=== PATIENT | male | born 1980 | race Caucasian/White ===

== ENCOUNTER 2021-12-17 10:50 | Observation (INO) | payer SELFPAY ==
[2021-12-17] MEDS ORDERED: PIPERACIL/TAZO 3.375 GM VIAL IV ONE ×2 (11:43→18:22)
[2021-12-17] MEDS ORDERED: MORPHINE 4 MG/ML SYR ONE ×2 (11:43→14:03)
[2021-12-17] MEDS ORDERED: ONDANSETRON 4 MG/2 ML VIAL ONE ×2 (11:43→14:03)
[2021-12-17] MEDS ORDERED: NA CHLORIDE 0.9% 100 ML ONE ×2 (11:44→18:21)
[2021-12-17] MEDS ORDERED: NA CHLORIDE 0.9% 1,000 ML ONE ×2 (11:44→18:21)
--- NOTE | 2021-12-17 11:48 | RAD REPORT ---
EXAM DESCRIPTION: RAD - Chest Single View - 12/17/2021 11:43 am CLINICAL HISTORY: ABDOMINAL DISTENTION COMPARISON: None TECHNIQUE: AP portable chest image was obtained 12/17/2021 11:43 am . FINDINGS: Lungs are clear. Heart and vasculature are normal. No measurable pleural effusion and no p neumothorax. No acute bony abnormality seen. No acute aortic findings suspected. IMPRESSION: No acute cardiopulmonary process.
[2021-12-17 12:09] LABS: Absolute Lymphocytes (CBC) 1.7 K/uL (0.7-4.9); Hematocrit 45.1 % (39.6-49.0); Lymphocytes % 25.4 % (15.3-44.8); MCV 96.9 fL (80-100); MPV 6.8 fL (7.6-11.3); RBC Red Blood Cell Count 4.65 M/uL (4.33-5.43)
[2021-12-17 12:21] LABS: Urine Blood Negative (Negative); Urine Glucose Trace (Negative); Urine Protein Trace (Negative)
[2021-12-17 12:31] LABS: Albumin 3.6 g/dL (3.4-5.0); Bilirubin Direct 0.2 mg/dL (0-0.2); Bilirubin Total 0.8 mg/dL (0.2-1.0); Magnesium 2.1 mg/dL (1.8-2.4); Potassium 4.1 mmol/L (3.5-5.1); Protein, Total 7.8 g/dL (6.4-8.2); Troponin High Sensitivity 4.4 pg/mL (<58.9)
--- NOTE | 2021-12-17 13:47 | RAD REPORT ---
EXAM DESCRIPTION: CT - Abdomen Pelvis W Contrast - 12/17/2021 1:28 pm CLINICAL HISTORY: Abdominal pain COMPARISON: none. TECHNIQUE: Computed axial tomography of the abdomen pelvis was obtained. 100 cc Isovue-300 was admin istered intravenously. Oral contrast was not requested which limits evaluation of bowel and appendix All CT scans are performed using dose optimization technique as appropriate and may include automated exposure control or mA/KV adjustment according to patient size. FINDINGS: Fatty liver Spleen, pancreas, adrenals and right kidney are unremarkable. Left renal calculi. No hydronephrosis. There is no evidence of diverticulitis. Normal appendix. An umbilical hernia contains fat. The neck measures 12 millimeters. Marked stranding within the herni ated fat. This may indicate strangulation. IMPRESSION: Umbilical hernia which may be strangulated
--- NOTE | 2021-12-17 14:01 | EDPHYS ---
Physician Documentation [facility] Name: Ike French Age: 41 yrs Sex: Male : 1980 Arrival Date: 12/17/2021 Time: 10:55 Bed 16 Private MD: ED Physician Chandler Oneill HPI: 12/17 11:28 This 41 yrs old Male presents to ER via Ambulatory with complaints of adrienne Referred by PCP for possible umbilical hernia and upper GI obstruction symptoms. 11:28 The patient presents with abdominal pain in the periumbilical area. abdominal adrienne distention in the upper abdomen, in the lower abdomen. Onset: The symptoms/episode began/occurred 3 day(s) ago. The symptoms do not radiate. Associated signs and symptoms: none. The symptoms are described as burning, steady. Modifying factors: The symptoms are alleviated by nothing, remaining still, the symptoms are aggravated by movement, pressure, touching the area. Severity of pain: At its worst the pain was moderate this morning, in the emergency department the pain is unchanged despite home interventions. The patient has not experienced similar symptoms in the past. Historical: - Allergies: 11:11 No Known Allergies; iw - Home Meds: 11:11 lisinopril Oral [Active]; iw - PMHx: 11:11 Hypertensive disorder; iw - Immunization history:: Adult Immunizations unknown. - Social history:: Smoking status: . - Family history:: not pertinent. ROS: 11:28 Constitutional: Negative for fever, chills, and weight loss, Eyes: Negative for injury, adrienne pain, redness, and discharge, ENT: Negative for injury, pain, and discharge, Neck: Negative for injury, pain, and swelling, Cardiovascular: Negative for chest pain, palpitations, and edema, Respiratory: Negative for shortness of breath, cough, wheezing, and pleuritic chest pain, Back: Negative for injury and pain, : Negative for injury, bleeding, discharge, and swelling, MS/Extremity: Negative for injury and deformity, Skin: Negative for injury, rash, and discoloration, Neuro: Negative for headache, weakness, numbness, tingling, and seizure, Psych: Negative for depression, anxiety, suicide ideation, homicidal ideation, and hallucinations, Allergy/Immunology: Negative for hives, rash, and allergies, Endocrine: Negative for neck swelling, polydipsia, polyuria, polyphagia, and marked weight changes, Hematologic/Lymphatic: Negative for swollen nodes, abnormal bleeding, and unusual bruising. 11:28 Abdomen/GI: Positive for abdominal pain, of the umbilical area. Exam: 11:28 Constitutional: This is a well developed, well nourished patient who is awake, alert, adrienne and in no acute distress. Head/Face: Normocephalic, atraumatic. Eyes: Pupils equal round and reactive to light, extra-ocular motions intact. Lids and lashes normal. Conjunctiva and sclera are non-icteric and not injected. Cornea within normal limits. Periorbital areas with no swelling, redness, or edema. ENT: Nares patent. No nasal discharge, no septal abnormalities noted. Tympanic membranes are normal and external auditory canals are clear. Oropharynx with no redness, swelling, or masses, exudates, or evidence of obstruction, uvula midline. Mucous membranes moist. Neck: Trachea midline, no thyromegaly or masses palpated, and no cervical lymphadenopathy. Supple, full range of motion without nuchal rigidity, or vertebral point tenderness. No Meningismus. Chest/axilla: Normal chest wall appearance and motion. Nontender with no deformity. No lesions are appreciated. Cardiovascular: Regular rate and rhythm with a normal S1 and S2. No gallops, murmurs, or rubs. Normal PMI, no JVD. No pulse deficits. Respiratory: Lungs have equal breath sounds bilaterally, clear to auscultation and percussion. No rales, rhonchi or wheezes noted. No increased work of breathing, no retractions or nasal flaring. Back: No spinal tenderness. No costovertebral tenderness. Full range of motion. Skin: Warm, dry with normal turgor. Normal color with no rashes, no lesions, and no evidence of cellulitis. MS/ Extremity: Pulses equal, no cyanosis. Neurovascular intact. Full, normal range of motion. Neuro: Awake and alert, GCS 15, oriented to person, place, time, and situation. Cranial nerves II-XII grossly intact. Motor strength 5/5 in all extremities. Sensory grossly intact. Cerebellar exam normal. Normal gait. Psych: Awake, alert, with orientation to person, place and time. Behavior, mood, and affect are within normal limits. 11:28 Abdomen/GI: Inspection: abdomen appears normal, Bowel sounds: normal, Palpation: moderate abdominal tenderness, in the umbilical area, Liver: no appreciated palpable abnormalities, Hernia: not appreciated. 11:47 ECG was reviewed by the Attending Physician. [facility] Vital Signs: 11:08 BP 132 / 93; Pulse 93; Resp 16; Temp 97.4; Pulse Ox 96% on R/A; iw 12:25 BP 127 / 108; Pulse 87; Resp 15; Pulse Ox 97% ; jl7 13:30 BP 130 / 94; Pulse 79; Resp 15; Pulse Ox 99% ; jl7 14:45 BP 130 / 90; Pulse 75; Resp 15; Pulse Ox 98% ; jl7 15:15 BP 121 / 96; Pulse 78; Resp 16; Pulse Ox 96% ; jl7 16:45 BP 114 / 77; Pulse 79; Resp 15; Pulse Ox 98% ; jl7 18:00 BP 125 / 89; Pulse 78; Resp 15; Pulse Ox 99% ; jl7 18:30 BP 132 / 96; Pulse 74; Resp 15; Pulse Ox 100% ; jl7 MDM: 11:17 Patient medically screened. [facility] 11:31 Differential diagnosis: bowel obstruction, non-specific abd pain, ventral hernia, adrienne incarcerated. Data reviewed: vital signs, nurses notes, lab test result(s), EKG, radiologic studies, CT scan, plain films. 12/17 11:27 Order name: Basic Metabolic Panel; Complete Time: 13:54 [facility] 12/17 11:27 Order name: CBC with Diff; Complete Time: 13:54 [facility] 12/17 11:27 Order name: LFT's; Complete Time: 13:54 [facility] 12/17 11:27 Order name: Magnesium; Complete Time: 13:54 [facility] 12/17 11:27 Order name: NT PRO-BNP; Complete Time: 13:54 [facility] 12/17 11:27 Order name: PT-INR; Complete Time: 13:54 [facility] 12/17 11:27 Order name: Troponin HS; Complete Time: 13:54 [facility] 12/17 11:27 Order name: Lipase; Complete Time: 13:54 [facility] 12/17 12:21 Order name: Urine Dipstick-Ancillary; Complete Time: 13:54 EDMS 12/17 14:34 Order name: CBC with Automated Diff EDMS 12/17 14:34 Order name: CBC with Automated Diff EDMS 12/17 14:34 Order name: Comprehensive Metabolic Panel [facility] 12/17 14:34 Order name: Comprehensive Metabolic Panel [facility] 12/17 14:34 Order name: Protime (+INR) [facility] 12/17 11:27 Order name: XRAY Chest (1 view); Complete Time: 13:54 [facility] 12/17 11:27 Order name: EKG; Complete Time: 11:27 [facility] 12/17 11:27 Order name: Cardiac monitoring; Complete Time: 11:40 [facility] 12/17 11:27 Order name: CT Abd/Pelvis - PO and IV Contrast; Complete Time: 13:54 [facility] 12/17 14:34 Order name: CONS Physician Consult [facility] 12/17 14:34 Order name: NPO [facility] 12/17 14:34 Order name: Protime (+INR) [facility] 12/17 14:34 Order name: PTT, Activated Partial Thromb [facility] 12/17 14:34 Order name: PTT, Activated Partial Thromb [facility] 12/17 14:54 Order name: SARS-COV-2 RT PCR (Document "Date of Onset" if Symptomatic) 12/17 17:11 Order name: SARS-COV-2 RT PCR [facility] 12/17 11:27 Order name: EKG - Nurse/Tech; Complete Time: 11:40 [facility] 12/17 11:27 Order name: IV Saline Lock; Complete Time: 12:21 [facility] 12/17 11:27 Order name: Labs collected and sent; Complete Time: 12:21 [facility] 12/17 11:27 Order name: O2 Per Protocol; Complete Time: 11:40 [facility] 12/17 11:27 Order name: O2 Sat Monitoring; Complete Time: 11:40 [facility] 12/17 11:27 Order name: Urine Dipstick-Ancillary (obtain specimen); Complete Time: 12:21 [facility] EC:47 Rate is 88 beats/min. Rhythm is regular. QRS [place] is Normal. [place] interval is normal. QRS adrienne interval is normal. QT interval is normal. No Q waves. T waves are Normal. No ST changes noted. Clinical impression: NSR w/ Non-specific ST/T Changes and No evidence of ischemia. Interpreted by me. Reviewed by me. Administered Medications: 12:10 Drug: NS 0.9% 500 ml Route: IV; Rate: bolus; Site: left antecubital; jl7 13:00 Follow up: Response: No adverse reaction; IV Status: Completed infusion; IV Intake: jl7 500ml 12:10 Drug: Zofran (Ondansetron) 4 mg Route: IVP; Site: left antecubital; jl7 13:00 Follow up: Response: No adverse reaction jl7 12:12 Drug: morphine 4 mg Route: IVP; Infused Over: 4 mins; Site: left antecubital; jl7 12:30 Follow up: Response: No adverse reaction; Pain is decreased jl7 12:16 Drug: Zosyn (piperacillin-tazobactam) 3.375 grams Route: IVPB; Infused Over: 60 mins; jl7 Site: left antecubital; 13:15 Follow up: Response: No adverse reaction; IV Status: Completed infusion jl7 12:30 Drug: NS 0.9% 1000 ml Route: IV; Rate: 125 ml/hr; Site: left antecubital; jl7 19:00 Follow up: Response: No adverse reaction; IV Status: Infusion continued upon admission jl7 Disposition Summary: 12/17/21 14:00 Hospitalization Ordered Hospitalization Status: Inpatient Admission adrienne Provider: Chantelle Lu cha Condition: Stable adrienne Problem: new adrienne Symptoms: have improved adrienne Bed/Room Type: Standard adrienne Location: Telemetry/MedSurg (Inpatient)(12/17/21 18:36) Room Assignment: [facility](12/17/21 18:36) Diagnosis - Periumbilical pain adrienne - Unspecified abdominal hernia with obstruction, without gangrene - umbilical fat adrienne - Essential (primary) hypertension adrienne Forms: - Medication Reconciliation Form adrienne - SBAR form adrienne Signatures: Dispatcher [employer] Vickie Mason RN RN dw Anderson, Corey, MD MD cha Williams, Irene RN Jaylene Ames RN RN jl7 Hermelinda Bliss Corrections: (The following items were deleted from the chart) 15:44 14:00 Telemetry/MedSurg (Inpatient) adrienne eb 15:44 14:00 adrienne eb 18:36 15:44 [facility] ER HOLD eb dw 18:36 15:44 ERHOLD- eb dw
--- NOTE | 2021-12-17 14:01 | ER ---
Nurse's Notes [facility] Name: Ike French Age: 41 yrs Sex: Male : 1980 Arrival Date: 12/17/2021 Time: 10:55 Bed 16 Private MD: Diagnosis: Periumbilical pain;Unspecified abdominal hernia with obstruction, without gangrene-umbilical fat;Essential (primary) hypertension Presentation: 12/17 11:08 Chief complaint: Patient states: large bulge under belly button about 3 days ago, was iw seen at PCP yesterday and told to come to ER , went to [facility] last night for 6 hours and ended up leaving due to wait time, pt has 40 pound weight loss over past 2 months, has abd pain nd swelling. Coronavirus screen: At this time, the client does not indicate any symptoms associated with coronavirus-19. Ebola Screen: Patient negative for fever greater than or equal to 101.5 degrees Fahrenheit, and additional compatible Ebola Virus Disease symptoms Patient denies exposure to infectious person. Patient denies travel to an Ebola-affected area in the 21 days before illness onset. No symptoms or risks identified at this time. Initial Sepsis Screen: Does the patient meet any 2 criteria? No. Patient's initial sepsis screen is negative. Does the patient have a suspected source of infection? No. Patient's initial sepsis screen is negative. Risk Assessment: Do you want to hurt yourself or someone else? Patient reports no desire to harm self or others. Onset of symptoms was October 2021. 11:08 Method Of Arrival: Ambulatory iw 11:08 Acuity: MARIELA 3 iw Historical: - Allergies: 11:11 No Known Allergies; iw - Home Meds: 11:11 lisinopril Oral [Active]; iw - PMHx: 11:11 Hypertensive disorder; iw - Immunization history:: Adult Immunizations unknown. - Social history:: Smoking status: . - Family history:: not pertinent. Screenin:25 Abuse screen: Denies threats or abuse. Denies injuries from another. Nutritional jl7 screening: No deficits noted. Tuberculosis screening: No symptoms or risk factors identified. Fall Risk IV access (20 points). Total Peguero Fall Scale indicates No Risk (0-24 pts). Assessment: 11:30 General: Appears in no apparent distress. uncomfortable, Behavior is calm, cooperative, jl7 appropriate for age. Pain: Complains of pain in abdomen Pain currently is 4 out of 10 on a pain scale. Pain began 4 day ago. Neuro: Level of Consciousness is awake, alert, obeys commands, Oriented to person, place, time, situation. Cardiovascular: Patient's skin is warm and dry. Respiratory: Airway is patent Respiratory effort is even, unlabored, Respiratory pattern is regular, symmetrical. GI: Abdomen is round distended, Abdomen is tender to palpation. Derm: Skin is pink, warm \T\ dry. 12:30 Reassessment: Patient appears in no apparent distress at this time. No changes from jl7 previously documented assessment. Patient and/or family updated on plan of care and expected duration. Pain level reassessed. Patient is alert, oriented x 3, equal unlabored respirations, skin warm/dry/pink. 13:30 Reassessment: Patient appears in no apparent distress at this time. No changes from jl7 previously documented assessment. Patient and/or family updated on plan of care and expected duration. Pain level reassessed. Patient is alert, oriented x 3, equal unlabored respirations, skin warm/dry/pink. 14:30 Reassessment: Patient appears in no apparent distress at this time. No changes from jl7 previously documented assessment. Patient and/or family updated on plan of care and expected duration. Pain level reassessed. Patient is alert, oriented x 3, equal unlabored respirations, skin warm/dry/pink. 15:30 Reassessment: Patient appears in no apparent distress at this time. No changes from jl7 previously documented assessment. Patient and/or family updated on plan of care and expected duration. Pain level reassessed. Patient is alert, oriented x 3, equal unlabored respirations, skin warm/dry/pink. 16:30 Reassessment: Patient appears in no apparent distress at this time. No changes from jl7 previously documented assessment. Patient and/or family updated on plan of care and expected duration. Pain level reassessed. Patient is alert, oriented x 3, equal unlabored respirations, skin warm/dry/pink. 17:30 Reassessment: Patient appears in no apparent distress at this time. No changes from jl7 previously documented assessment. Patient and/or family updated on plan of care and expected duration. Pain level reassessed. Patient is alert, oriented x 3, equal unlabored respirations, skin warm/dry/pink. 18:00 Reassessment: Pt reports increased pain, medicated pt per orders in [facility], 2 mg jl7 Morphine IVP. Vital Signs: 11:08 BP 132 / 93; Pulse 93; Resp 16; Temp 97.4; Pulse Ox 96% on R/A; iw 12:25 BP 127 / 108; Pulse 87; Resp 15; Pulse Ox 97% ; jl7 13:30 BP 130 / 94; Pulse 79; Resp 15; Pulse Ox 99% ; jl7 14:45 BP 130 / 90; Pulse 75; Resp 15; Pulse Ox 98% ; jl7 15:15 BP 121 / 96; Pulse 78; Resp 16; Pulse Ox 96% ; jl7 16:45 BP 114 / 77; Pulse 79; Resp 15; Pulse Ox 98% ; jl7 18:00 BP 125 / 89; Pulse 78; Resp 15; Pulse Ox 99% ; jl7 18:30 BP 132 / 96; Pulse 74; Resp 15; Pulse Ox 100% ; jl7 ED Course: 10:55 Patient arrived in ED. jj6 11:11 Triage completed. iw 11:12 Arm band placed on. iw 11:14 Jaylene Murray, RADHA is Primary Nurse. jl7 11:17 Chandler Oniell MD is Attending Physician. adrienne 11:44 XRAY Chest (1 view) In Process Unspecified. EDMS 12:25 Patient has correct armband on for positive identification. Bed in low position. Call jl7 light in reach. Side rails up X 1. Pulse ox on. NIBP on. 12:25 Initial lab(s) drawn, by ED staff, sent to lab. Urine collected: clean catch specimen, jl7 clear. Inserted saline lock: in left antecubital area, using aseptic technique. Blood collected. 13:30 CT Abd/Pelvis - PO and IV Contrast In Process Unspecified. EDMS 13:56 Chantelle Lu MD is Hospitalizing Provider. adrienne 18:50 No provider procedures requiring assistance completed. Patient admitted, IV remains in jl7 place. intact, No redness/swelling at site. Administered Medications: 12:10 Drug: NS 0.9% 500 ml Route: IV; Rate: bolus; Site: left antecubital; jl7 13:00 Follow up: Response: No adverse reaction; IV Status: Completed infusion; IV Intake: jl7 500ml 12:10 Drug: Zofran (Ondansetron) 4 mg Route: IVP; Site: left antecubital; jl7 13:00 Follow up: Response: No adverse reaction jl7 12:12 Drug: morphine 4 mg Route: IVP; Infused Over: 4 mins; Site: left antecubital; jl7 12:30 Follow up: Response: No adverse reaction; Pain is decreased jl7 12:16 Drug: Zosyn (piperacillin-tazobactam) 3.375 grams Route: IVPB; Infused Over: 60 mins; jl7 Site: left antecubital; 13:15 Follow up: Response: No adverse reaction; IV Status: Completed infusion jl7 12:30 Drug: NS 0.9% 1000 ml Route: IV; Rate: 125 ml/hr; Site: left antecubital; jl7 19:00 Follow up: Response: No adverse reaction; IV Status: Infusion continued upon admission jl7 Medication: 12:25 VIS not applicable for this client. jl7 Intake: 13:00 IV: 500ml; Total: 500ml. jl7 Outcome: 14:00 Decision to Hospitalize by Provider. adrienne 21:45 Patient left the ED. kd3 Signatures: Dispatcher [employer] EDChandler Paiz MD MD cha Williams, Irene, RN RN iw Leal, Jahala, RN RN jl7 Jeffries, Jennifer jj6 Doucette, Kyli, RN RN kd3
[2021-12-17] MEDS ORDERED: ACETAMINOPHEN 500 MG TAB PO PRN (14:31)
[2021-12-17] MEDS ORDERED: ONDANSETRON 4 MG/2 ML VIAL IV PRN (14:31)
--- NOTE | 2021-12-17 14:31 | P.HP ---
Certification for Inpatient Patient admitted to: Observation With expected LOS: <2 Midnights Patient will require the following post-hospital care: None Practitioner: I am a practitioner with admitting privileges, knowledge of patient current condition, hospital course, and medical plan of care. Services: Services provided to patient in accordance with Admission requirements found in Title 42 Section 412.3 of the Code of Federal Regulations Patient History Date of Service: 12/17/21 Reason for admission: Abdominal pain History of Present Illness: Patient is a 41-year-old gentleman who came to the hospital with abdominal pain. He noticed he had umbilical hernia that was erythematous. He came to the emergency room and it was very tender. They were not able to reduce it. Patient was seen by general surgery. Patient be taken to the operating room in the morning. Allergies No Known Allergies Allergy (Unverified 12/17/21 17:23) Home Medications: Lisinopril [Zestril] 40 mg PO DAILY 12/17/21 - Past Medical/Surgical History -: Hypertension Past Surgical History: Patient denies surgical history - Family History Father Family History: Reviewed- Non-Contributory - Social History Smoking Status: Former smoker Alcohol use: No CD- Drugs: No Review of Systems 10-point ROS is otherwise unremarkable Physical Examination - Vital Signs Temperature: 99 F Blood Pressure: 120/80 Pulse: 88 Respirations: 18 Pulse Ox (%): 96 - Physical Exam General: Alert, In no apparent distress, Oriented x3 HEENT: Atraumatic, PERRLA, Mucous membr. moist/pink, EOMI, Sclerae nonicteric Neck: Supple, 2+ carotid pulse no bruit, No LAD, Without JVD or thyroid abnormality Respiratory: Clear to auscultation bilaterally, Normal air movement Cardiovascular: Regular rate/rhythm, Normal S1 S2, No murmurs Gastrointestinal: Absent bowel sounds, Tenderness, Rebound, Guarding Musculoskeletal: No clubbing, No swelling, No tenderness Integumentary: No rashes Neurological: Normal gait, Normal speech, Normal strength at 5/5 x4 extr, Normal tone, Sensation intact, Cranial nerves 3-12 intact, Normal affect Lymphatics: No axilla or inguinal lymphadenopathy - Studies Laboratory Data (last 24 hrs) 12/17/21 11:55: PT 11.0, INR 1.00 12/17/21 11:55: WBC 6.9, Hgb 15.9, Hct 45.1, Plt Count 185 12/17/21 11:55: Sodium 139, Potassium 4.1, BUN 20 H, Creatinine 1.42 H, Glucose 118 H, Magnesium 2.1, Total Bilirubin 0.8, AST 85 H, ALT 164 H, Alkaline Phosphatase 118 H, Lipase 187 Assessment & Plan - Problems (Diagnosis) (1) Strangulated umbilical hernia Current Visit: Yes Status: Acute (2) Hypertension Current Visit: Yes Status: Acute - Plan PLAN: 1. IV fluids 2. Antibiotics 3. Pain control 4. Surgery consultation 5. Monitor blood pressure closely 6. GI DVT prophylaxis Discharge Plan: Home Plan to discharge in: 24 Hours - Advance Directives Does patient have a Living Will: No Does patient have a Durable POA for Healthcare: No - Code Status/Comfort Care Code Status Assessed: Yes Code Status: Full Code Critical Care: No Time Spent Managing PTS Care (In Minutes): 45
[2021-12-17] MEDS: NA CHLORIDE 0.9% 1,000 ML IV SCH (15:00)
[2021-12-17] MEDS: PIPER TAZO 3.375 GM in NA CHLORIDE 0.9% 100 ML IV SCH (17:00)
[2021-12-17] MEDS: MORPHINE 2 MG/ML SYR IV PRN ×2 (18:00→22:32)
[2021-12-17] MEDS ORDERED: MORPHINE 2 MG/ML SYR ONE (18:21)
[2021-12-17 18:50] VITALS: BMI 32.1
[2021-12-18] MEDS: PIPER TAZO 3.375 GM in NA CHLORIDE 0.9% 100 ML IV SCH ×2 (00:40→09:36)
[2021-12-18] MEDS: NA CHLORIDE 0.9% 1,000 ML IV SCH ×2 (00:41→12:32)
[2021-12-18 04:45] LABS: Absolute Lymphocytes (CBC) 2.2 K/uL (0.7-4.9); Hematocrit 40.6 % (39.6-49.0); Lymphocytes % 38.3 % (15.3-44.8); MCV 98.2 fL (80-100); MPV 6.8 fL (7.6-11.3); RBC Red Blood Cell Count 4.14 M/uL (4.33-5.43)
[2021-12-18 04:50] LABS: Protime INR 0.96
[2021-12-18 05:09] LABS: Albumin 3.2 g/dL (3.4-5.0); Bilirubin Total 0.8 mg/dL (0.2-1.0); Potassium 4.1 mmol/L (3.5-5.1); Protein, Total 6.8 g/dL (6.4-8.2)
[2021-12-18] MEDS: MORPHINE 2 MG/ML SYR IV PRN (06:08)
--- NOTE | 2021-12-18 07:55 | RAD REPORT ---
EXAM DESCRIPTION: RAD - Abdomen 1 View (KUB) - 12/18/2021 6:50 am CLINICAL HISTORY: Abd pain COMPARISON: Abdomen Pelvis W Contrast dated 12/17/2021 FINDINGS: Contrast is present in the nondilated colon indicating oral CT contrast has fully transit of small bowel and reached the distal rectum. No dilated small bowel loops. No free air or pneumatosi s. No suspicious calcifications. The patient's previously detailed fat only umbilical hernia does not have a plain film correlate. No significant bony findings IMPRESSION: Negative KUB examination.
[2021-12-18] MEDS ORDERED: MIDAZOLAM HCL 2 MG/2 ML INJ ONE ×2 (09:31→11:59)
[2021-12-18] MEDS ORDERED: FENTANYL CITR 100 MCG/2 ML ONE (09:31)
[2021-12-18] MEDS ORDERED: propofoL 200 MG/20 ML VIAL IV ONE (09:31)
[2021-12-18] MEDS ORDERED: LIDOCAINE 1% MPF 5 ML VIAL ONE (09:32)
[2021-12-18] MEDS ORDERED: dexAMETHasone 4 MG/ML VIAL ONE (09:32)
[2021-12-18] MEDS ORDERED: GLYCOPYRROLATE 0.2 MG/ML SYR ONE (09:32)
[2021-12-18] MEDS ORDERED: NEOSTIGMINE 1 MG/ML -10 ML VIAL ONE (09:33)
[2021-12-18] MEDS ORDERED: ONDANSETRON 4 MG/2 ML VIAL ONE (09:33)
[2021-12-18] MEDS ORDERED: KETOROLAC 30 MG/ML INJ ONE (09:33)
[2021-12-18] MEDS ORDERED: ROCURONIUM 50 MG/5 ML VIAL IV ONE (10:04)
[2021-12-18] MEDS ORDERED: Ringers Lactate 1,000 ML IV ONE (10:48)
--- NOTE | 2021-12-18 11:16 | P.BOP ---
Preoperative diagnosis: strangulated umbilical hernia Postoperative diagnosis: same Primary procedure: Open repair of strangulated umbilical hernia Estimated blood loss: <10cc Specimen: omentum Findings: strangulated omentum Anesthesia: General Complications: None Transferred to: Recovery Room Condition: Good
[2021-12-18] MEDS: HYDROMORPHONE HCL 1 MG/ML INJ ONE ×8 (11:20→11:52)
[2021-12-18] MEDS ORDERED: PROMETHAZINE INJ 25 MG/ML AMP ONE (11:32)
--- NOTE | 2021-12-18 11:33 | CON ---
Date of Consultation: 12/18/2021 Diagnosis: Incarcerated strangulated umbilical hernia. History Of Present Illness: This is the case of a 41-year-old patient, who comes to us with periumbi lical tenderness. Came to the ER, found to have omentum trapped into the umbilical hernia with possi ble strangulation. No bowel involved. The pain was there for about 3 days and he does not remember any episode like this before. He denies any dysuria, hematuria, hematochezia, melena. He denies any recent traveling out of the country. He denies any family member sick at home. He does not recall any heavy lifting or any heavy activities. He has history of hypertension and taking lisinopril. Review of Systems: No constipation. No nausea. No vomiting, although he has intractable pain in the periumbilical ras on. Ten points otherwise unremarkable. Allergies: NONE. Medications: Lisinopril. Past Medical History: Hypertension. Social History: He does not smoke. He does not drink alcohol. Family History: Unremarkable. Physical Examination: General: The patient is awake, alert. HEENT: Pupils are equal and reactive. Anicteric. Neck: Supple. Chest: Clear. Abdomen: Soft and depressible. There is exquisite tenderness of the periumbilical region. Rectal: Deferred. Extremities: Good capillary refill. Laboratory Data: Blood work shows a WBC count of 6.9, hemoglobin of 15.9, platelets of 185. Potassi um 4.1, glucose 118. CAT scan of abdomen and pelvis interpreted by Dr. Rivas as umbilical hernia, which may be strangulated. Assessment: It this is a 41-year-old patient with a strangulated umbilical hernia. The medical doct or admitted him and in the lasts few hours controlled his blood pressure, getting medically clear and now the pain is still intractable, so we are going to have to fix that during this admission. The b enefits, alternatives, and risks of repair of umbilical hernia with possible mesh fully explained, wh ich include, but not limited to infection, bleeding, damage to adjacent structures, anesthesia compli cation, recurrence, [place], and even . He also understands this may not relieve any symptoms. He m ight need more than one surgical intervention. He understands. We explained to him activities, whic h can lead to an umbilical hernia so we proceeded to explain to him ways how to diminish the chance o f that in the future. GARFIELD/CORTEZ Voice ID: [id number] Report ID: [id number]
[2021-12-18 11:55] VITALS: O2SAT 98
[2021-12-18] MEDS ORDERED: MORPHINE 2 MG/ML SYR IV PRN (12:34)
--- NOTE | 2021-12-18 13:31 | P.DS ---
Discharge Date: 12/18/21 Disposition: ROUTINE DISCHARGE Reason for Admission: Abdominal pain - Problems (1) Strangulated umbilical hernia Current Visit: Yes Status: Acute (2) Hypertension Current Visit: Yes Status: Acute Brief History of Present Illness: Patient is a 41-year-old gentleman who came to the hospital with abdominal pain. He noticed he had umbilical hernia that was erythematous. He came to the emergency room and it was very tender. They were not able to reduce it. Patient was seen by general surgery. Patient be taken to the operating room in the morning. Hospital Course: Patient has done well during surgery. Patient will be given a diet and if he tolerates that he is stable for discharge home on antibiotics and pain medication. Outpatient follow-up with Dr. Luis on Monday. Vital Signs/Physical Exam: Temp Pulse Resp BP Pulse Ox 99 F 88 18 120/80 96 12/18/21 13:28 12/18/21 13:28 12/18/21 13:28 12/18/21 13:28 12/18/21 13:28 General: Alert, In no apparent distress, Oriented x3 Laboratory Data at Discharge: WBC 5.8 K/uL (4.3-10.9) D 12/18/21 04:06 Hgb 14.2 g/dL (13.6-17.9) 12/18/21 04:06 Hct 40.6 % (39.6-49.0) 12/18/21 04:06 Plt Count 137 K/uL (152-406) L D 12/18/21 04:06 PT 10.5 SECONDS (9.5-12.5) 12/18/21 04:06 INR 0.96 12/18/21 04:06 APTT 26.1 SECONDS (24.3-36.9) 12/18/21 04:06 Sodium 139 mmol/L (136-145) 12/18/21 04:06 Potassium 4.1 mmol/L (3.5-5.1) 12/18/21 04:06 BUN 19 mg/dL (7-18) H 12/18/21 04:06 Creatinine 1.50 mg/dL (0.55-1.3) H 12/18/21 04:06 Glucose 107 mg/dL (74-106) H 12/18/21 04:06 Magnesium 2.1 mg/dL (1.8-2.4) 12/17/21 11:55 Total Bilirubin 0.8 mg/dL (0.2-1.0) 12/18/21 04:06 AST 59 U/L (15-37) H 12/18/21 04:06 ALT 130 U/L (12-78) H 12/18/21 04:06 Alkaline Phosphatase 93 U/L (45-117) 12/18/21 04:06 Lipase 187 U/L (73-393) 12/17/21 11:55 Home Medications: Lisinopril [Zestril] 40 mg PO DAILY 12/17/21 Codeine/APAP [Tylenol W/Codeine #3 tab] 1 tab PO Q6HP PRN #30 tab 12/18/21 Levofloxacin [Levaquin] 500 mg PO DAILY #7 tablet 12/18/21 metroNIDAZOLE [Flagyl] 500 mg PO Q8H #21 tablet 12/18/21 New Medications: metroNIDAZOLE [Flagyl] 500 mg PO Q8H #21 tablet Levofloxacin [Levaquin] 500 mg PO DAILY #7 tablet Codeine/APAP [Tylenol W/Codeine #3 tab] 1 tab PO Q6HP PRN #30 tab PRN Reason: Pain Physician Discharge Instructions: -DC IV and DC home -Follow-up with PCP in 1 to 2 weeks -Follow-up with SURGERY on Monday -Please call Dr. Lu at [phone] if any questions regarding hospital stay -Please call nursing station at [phone] if any nursing or medication que stions -Return to the emergency room if symptoms worsen -outpatient follow-up with Dr. Luis on Monday. Diet: Regular Activity: Fall precautions Followup: Unknown,U [Primary Care Provider] - Time spent managing pt's care (in minutes): 35
--- NOTE | 2021-12-18 14:38 | OP ---
Date of Procedure: 12/18/2021 Surgeon: Sage Luis MD Preoperative Diagnosis: Strangulated umbilical hernia. Postoperative Diagnosis: Strangulated umbilical hernia. Procedure: Open repair of strangulated umbilical hernia. Anesthesia: General plus local. Complications: None. Finding: Incarcerated strangulated omentum and the umbilical hernia. Indication: This is the case of a 41-year-old patient, who comes to us with abdominal pain, admitted to the hospital with a strangulated umbilical hernia. Medical doctor checked the patient for a medi zen clearance. He still has intractable pain in that area. He wants the surgery done during this ad mission. So he was fully explained the benefits, alternatives, and risks of repair of an umbilical h ernia with possible mesh, which include, but not limited to infection, bleeding, damage to adjacent s tructures, anesthesia complication, recurrence, [place] and even . He also understands this may not relieve any symptoms. He might need more than one surgical intervention. He understood, signed a co nsent. Procedure In Detail: The patient was brought to the operating room, placed in supine position. Anes thesia was done without complication. Abdominal area was prepped and draped in the usual sterile fas hion. Marcaine 0.5% was injected for local anesthetic followed by sharp incision of the skin in the supraumbilical region. We have control of incarcerated tissue, removed umbilical skin from the herni a sac. Hernia sac was opened. We noticed to having a strangulated omentum. After careful evaluatio n, we proceeded to ligate that omentum with Shoshana clamps and tied with 0 chromic. The omentum left b ehind checked to make sure there is no bleeding. Hernia sac was removed. Fascial edges w ere cleaned. We noticed that we can approximate this without the system with #1 Prolene in a figure- of-eight fashion multiple times. Once we have the hernia under control, then we proceeded to close t he subcutaneous tissue with 3-0 chromic and then closed the skin with umesh. Sponge count, instrum ent counts correct. The patient tolerated the procedure well. The patient was sent to recovery in s table condition. If the patient gets discharged today and tolerates diet, then we asked him to leave the dressings intact until he sees me next Monday. Follow up in my office next Monday. Keep the area dry and intact. For medications, Dr. Allen will be prescribing some pain medications and some antibiotics for him. He was advised not to do heavy lifting. GARFIELD/CORTEZ Voice ID: [id number] Report ID: [id number]
[2021-12-18 18:05] VITALS: BP 138/97; TEMP 97.9
--- NOTE | 2021-12-19 14:43 | EKG ---
Test Date: 2021-12-17 Test Time: 11:38:00 Appeals Assistant: MB MEASUREMENT RESULTS: Intervals: Rate: 88 IL: 126 QRSD: 76 QT: 362 QTc: 438 [place]: P: 51 IL: 126 QRS: 69 T: 35 INTERPRETIVE STATEMENTS: Normal sinus rhythm Normal ECG No previous ECG available for comparison Electronically Signed On 12-19-21 14:41:20 CDT by Jonathan Dominique
--- OUTSIDE RECORDS SUMMARY | 2021-12-23 06:45 | XMS REPORT | Continuity of Care Document ---
:1980 Author Organization [facility] t Address [address] [place] [address] Care Team Providers Name Role Phone PCP, DOES NOT HAVE A Primary Care Physician Unavailable Benoit GARDNER Attending Clinician Unavailable Varghese LEE Attending Clinician Benoit Gardner APN Attending Clinician Frances Attending Clinician Unavailable Frances Admitting Clinician Unavailable Payers Payer Name Policy Type Policy Number Effective Date Expiration Date Edwina dumont [id number] 2016 00:00:00 () [id number] Problems This patient has no known problems. Allergies, Adverse Reactions, Alerts Allergy Allergy Status Severity Reaction(s) Onset Inactive Treating Comm ents Source Name Type Date Date Clinician NO KNOWN Drug Active [facility] [place] [facility] Social History Social Habit Start Date Stop Date Quantity Comments Source Exposure to 2021-12-06 2021-12-16 Not sure [facility] SARS-CoV-2 (event) 00:00:00 17:47:00 Medica l Branch Sex Assigned At [birth year] [facility] [place] 00:00:00 00:00:00 Medical Branch Smoking Status Start Date Stop Date Source Former [facility] Tobacco smoking consumption [facility] unknown Branch Medications Ordered Filled Start Stop Current Ordering Indication Dosage Frequency Signature Comments Components Source Medication Medication Date Date Medication? Clinician (SIG) Name Name sodium Yes 5mL 5 mL, [facility] chloride 7-14 Intravenou ity o f (NS) 22:51: s, PRN, [place] injection 5 13 Starting Medi zen mL on [facility] 12/16/21 at 1751, Until Discontinu ed, Routine, IV line flushing lisinopril lisinopril No 1 Q1D lisinopril [facility] 40 mg 40 mg 40 mg Family tablet Take tablet Take tablet Practic 1 tablet 1 tablet Take 1 e every day every day tablet by oral by oral every day route. route. by oral route. simvastatin simvastatin No simvastati [place] 1 tablet 1 tablet n 1 tablet F amily everyday everyday everyday Pra ctic e Vital Signs Vital Name Observation Time Observation Value Comments Source Systolic blood 2021-12-16 23:59:00 155 mm[Hg] Univer sity pressure [facility] Diastolic blood 2021-12-16 23:59:00 111 mm[Hg] [facility] 2021-12-16 23:59:00 83 /min [facility] Respiratory rate 2021-12-16 23:59:00 18 /min [facility] Oxygen saturation in 2021-12-16 23:59:00 100 /min [facility] Arterial blood by [facility] Pulse oximetry Branch Body temperature 2021-12-16 22:49:00 36.94 Viridiana [facility] Body weight 2021-12-16 22:49:00 92.987 kg [facility] BP Diastolic 2021-12-16 00:00:00 116 mm[Hg] [facility] Height 2021-12-16 00:00:00 67 [in_i] [facility] BMI (Body Mass 2021-12-16 00:00:00 32.2 kg/m2 [facility] BP Systolic 2021-12-16 00:00:00 156 mm[Hg] [facility] Body Weight 2021-12-16 00:00:00 205.6 [lb_av] [facility] Procedures Procedure Date / Time Performed Performing Clinician Sour e XR CHEST 2 VW 2021-12-17 00:51:00 [facility] CONSENT/REFUSAL FOR 2021-12-16 22:54:35 Doctor Unassigned, No Un [facility] DIAGNOSIS AND Name Medical Branch TREATMENT Encounters Start End Encounter Admission Attending Care Care Encounter Source Date/Time Date/Time Type Type Clinicians Facility Department ID 2021-12-16 2021-12-16 Emergency X V[facility] ERT [id number] [facility] 17:49:00 22:35:00 GAMALIEL smiley of [facility] 2021-12-16 2021-12-16 Emergency [place] TRAUMA [id number] [facility] 17:49:00 22:35:00 Vicki Gamaliel [facility] [id number] ity [id number] [facility] [id number] [address] 2021-12-16 2021-12-16 Outpatient Shepherd_A VFP VFP [id number] [facility] 05:59:00 05:59:00 [id number] Family Yany e 2021-12-16 2021-12-16 [place] VFP [place] - [id number] [facility] 00:00:00 00:00:00 Katharine Soha Main, Medical - Pract ic [place]: [address], ([facility]) [place] [id number] , Ph. Results This patient has no known results.
== END 2021-12-18 18:25 | disposition home or self-care (01) ==
LOC: ER 10:50 → ERHOLD 14:31 → 2ND 19:29
PROVIDERS: ADMIT Hospitalist; ATTEND Hospitalist
PROC: 0WQF0ZZ Repair Abdominal Wall, Open Approach (ICD-10-PCS; principal; 2021-12-18 10:00)
DX: K42.0 Umbilical hernia with obstruction, without gangrene (principal); I10 Essential (primary) hypertension; J44.9 Chronic obstructive pulmonary disease, unspecified; Z79.899 Other long term (current) drug therapy; Z87.891 Personal history of nicotine dependence; Z20.822 Contact with and (suspected) exposure to COVID-19
CPT/HCPCS: 36415; 71045; 74018; 74177; 80048; 80053; 80076; 81003; 83690; 83735; 83880; 84484; 85025; 85610; 85730; 88302; 93005; 96361; 96365; 96375; 99284; G0378; J1100; J1170; J2250; J2270; J2405; J2543; J2550; J2704; J2710; J3010; J7030; J7120; Q9967; U0003